=== PATIENT | male | born 1970 | race Caucasian/White ===

== ENCOUNTER 2023-09-09 05:55 | Day surgery (SDC) | payer OTHER ==
[2023-09-09] MEDS ORDERED: Lactated Ringers 1,000 ML IV SCH (06:30)
[2023-09-09] MEDS ORDERED: DIPRIVAN 200 MG/20 ML IV ONE ×2 (07:34→07:43)
[2023-09-09] MEDS ORDERED: Versed 2 MG/2 ML Injection ONE (07:34)
[2023-09-09] MEDS ORDERED: Xylocaine-Mpf 2% 5 Ml Vial ONE (07:34)
[2023-09-09] MEDS ORDERED: Ephedrine Sulfate 50 MG/ML ONE (07:44)
--- NOTE | 2023-09-09 08:38 | OP ---
SURGERY DATE/TIME: 09/09/2023 4995 PREOPERATIVE DIAGNOSES: 1) Screening colonoscopy. 2) Family history of colon cancer. POSTOPERATIVE DIAGNOSES: 1) Normal colon. 2) Mild sigmoid diverticulosis. PROCEDURE: Colonoscopy. SURGEON: Jos Kumar M.D. ANESTHESIA: MAC by Jimenez Gonzalez CRNA. ESTIMATED BLOOD LOSS: None. SPECIMENS: None. DESCRIPTION OF PROCEDURE: After informed written consent was obtained, the patient was taken to the endoscopy suite. He was placed in left lateral decubitus position and anesthesia was titrated to desired level of consciousness. Digital rectal exam showed normal sphincter tone and no internal lesions. The scope was inserted into the rectum and sequentially the entire colonic mucosa was traversed. The level of cecum was reached and verified with direct visualization of the ileocecal valve. Upon withdrawal careful mucosal inspection revealed no gross abnormalities. Prep was noted to be good. There was scattered diverticula in the sigmoid colon with no evidence of any other mucosal abnormalities encountered. Prior to withdrawal retroflexion was performed and showed no internal lesions. The scope was removed. The patient was transferred to the recovery room in good condition.
[2023-09-09 08:39] VITALS: TEMP 96.3
[2023-09-09 08:50] VITALS: RESP 18; O2SAT 98
[2023-09-09 08:57] VITALS: BP 120/72; PULSE 76
== END 2023-09-09 08:55 | disposition home or self-care (01) ==
LOC: SDC 05:55
PROVIDERS: ATTEND Family Medicine
DX: Z12.11 Encounter for screening for malignant neoplasm of colon (principal); Z80.0 Family history of malignant neoplasm of digestive organs; K57.30 Diverticulosis of large intestine without perforation or abscess without bleeding
CPT/HCPCS: 93005; J2250; J2704